=== PATIENT | female | born 1935 | race Caucasian/White ===

== ENCOUNTER 2021-02-14 17:06 | Observation (INO) | payer MEDICARE ==
[~2021-02-14] VITALS: Ht 165.1 cm; Wt 59.0 kg
[2021-02-14 22:37] LABS: CLARITY,URINE SL CLOUDY (CLEAR); COLOR,URINE YELLOW (YELLOW); KETONES,URINE NEGATIVE (NEGATIVE); LEUKOCYTE ESTERASE ,URINE TRACE (NEGATIVE); NITRITE,URINE POSITIVE (NEGATIVE); PROTEIN,URINE DIPSTICK NEGATIVE (NEGATIVE); URINE UROBILINOGEN 0.2 mg/dL (0.2 - 1)
[2021-02-14 22:40] LABS: BASOPHILS # (AUTO) 0.1 (0.0-0.1); BASOPHILS % 0.6 % (0.0-1.0); EOSINOPHILS # (AUTO) 0.1 (0.0-0.4); HEMATOCRIT 41.8 % (34.2-44.1); HEMOGLOBIN 13.6 g/dL (12.0-16.0); LYMPHOCYTES # (AUTO) 4.5 (1.0-3.2); MEAN CORPUSCULAR HEMOGLOBIN 30.2 pg (28-32); MEAN CORPUSCULAR HGB CONC 32.5 g/dL (31-35); MEAN CORPUSCULAR VOLUME 92.9 fL (81-99); MONOCYTES % 10.6 % (4.4-11.3); NEUTROPHILS % 41.5 % (38.7-80.0); PLATELET COUNT 211 x10e3/uL (140-360); RED CELL DISTRIBUTION WIDTH 12.5 % (11.7-14.4)
[2021-02-14 22:47] LABS: BACTERIA,URINE MANY /HPF; EPITHELIAL CELLS,URINE FEW /LPF; RBC,URINE 0-5 /HPF (0-5)
[2021-02-14 22:55] LABS: ALBUMIN 4.1 g/dL (3.5-5.0); ALBUMIN/GLOBULIN RATIO 1.6 (0.8-2.0); ANION GAP 16.8 mmol/L (8-16); CALCIUM 8.8 mg/dL (8.4-10.2); CREATININE, SERUM 1.1 mg/dL (0.57-1.11)
[2021-02-14 22:59] LABS: POTASSIUM 2.8 mmol/L (3.5-5.1)
[2021-02-14 23:02] LABS: CREATINE KINASE MB 1.5 ng/mL (0-5.0)
[2021-02-14] MEDS ORDERED: POTASSIUM CHLORIDE 20 MEQ TAB CR PO STA (23:06)
[2021-02-14] MEDS ORDERED: CEFTRIAXONE 1 GM in SODIUM CHLORIDE 0.9% 50ML 50 ML IV ONE (23:30)
[2021-02-15] MEDS ORDERED: POTASSIUM CHLORIDE 20 MEQ TAB CR PO STA (00:19)
[2021-02-15 06:14] LABS: BASOPHILS # (AUTO) 0.1 (0.0-0.1); BASOPHILS % 0.9 % (0.0-1.0); EOSINOPHILS # (AUTO) 0.1 (0.0-0.4); EOSINOPHILS % 1.1 % (0.0-6.0); HEMATOCRIT 37.7 % (34.2-44.1); HEMOGLOBIN 12.2 g/dL (12.0-16.0); LYMPHOCYTES % 37.8 % (18.0-39.1); MEAN CORPUSCULAR HEMOGLOBIN 30.3 pg (28-32); MEAN CORPUSCULAR HGB CONC 32.4 g/dL (31-35); MEAN CORPUSCULAR VOLUME 93.5 fL (81-99); MONOCYTES # (AUTO) 0.9 (0.2-0.8); MONOCYTES % 11.9 % (4.4-11.3); NEUTROPHILS # (AUTO) 3.8 (2.1-6.9); NEUTROPHILS % 48.2 % (38.7-80.0); PLATELET COUNT 178 x10e3/uL (140-360); RED BLOOD COUNT 4.03 x10e6/uL (3.6-5.1); RED CELL DISTRIBUTION WIDTH 12.4 % (11.7-14.4)
[2021-02-15 06:46] LABS: ALBUMIN 3.5 g/dL (3.5-5.0); ALBUMIN/GLOBULIN RATIO 1.5 (0.8-2.0); ANION GAP 14.4 mmol/L (8-16); CALCIUM 8.4 mg/dL (8.4-10.2); CREATININE, SERUM 0.94 mg/dL (0.57-1.11); POTASSIUM 3.4 mmol/L (3.5-5.1)
[2021-02-15] MEDS ORDERED: ONDANSETRON HCL INJ 2MG/ML 2ML 2 MG/ML VIAL IV PRN (07:45)
[2021-02-15] MEDS ORDERED: DOCUSATE SODIUM 100 MG CAP PO PRN (07:45)
[2021-02-15] MEDS ORDERED: ACETAMINOPHEN 325 MG TAB PO PRN (07:45)
[2021-02-15] MEDS: MULTIVITAMINS/MINERALS TAB PO SCH (07:54)
[2021-02-15] MEDS: SODIUM CHLORIDE 0.45% 1,000 ML IV SCH (08:05)
[2021-02-15] MEDS ORDERED: POTASSIUM (09:53)
[2021-02-15] MEDS ORDERED: PRAVASTATIN SOD20 MG PO (09:53)
[2021-02-15] MEDS ORDERED: ALBUTEROL (09:53)
[2021-02-15] MEDS ORDERED: METOPROLOL SUCC50 MG PO (09:53)
[2021-02-15] MEDS ORDERED: NIFEDIPINE ER30 M1 PO (09:53)
[2021-02-15] MEDS ORDERED: FUROSEMIDE40 MG PO (09:53)
[2021-02-15 10:24] VITALS: BP 139/80
[2021-02-15 10:30] VITALS: BP 139/80
[2021-02-15 11:39] VITALS: BP 131/89
[2021-02-15] MEDS ORDERED: POTASSIUM CHLO10 ME1 PO (11:39)
[2021-02-15 16:17] VITALS: BP 132/70
[2021-02-15] MEDS: METOPROLOL SUCCINATE 50 MG TAB XL PO SCH (17:49)
[2021-02-15 21:00] VITALS: BP 114/70
[2021-02-15] MEDS ORDERED: ZOLPIDEM TARTRATE 5 MG TAB PO PRN (21:00)
[2021-02-15] MEDS ORDERED: PRAVASTATIN 20 MG TAB PO SCH (21:00)
[2021-02-15 21:16] VITALS: BP 114/70
[2021-02-16] MEDS ORDERED: CEFTRIAXONE 1 GM in SODIUM CHLORIDE 0.9% 50ML 50 ML IV SCH (00:30)
[2021-02-16] MEDS: SODIUM CHLORIDE 0.45% 1,000 ML IV SCH (00:40)
[2021-02-16 01:39] VITALS: BP 112/74
[2021-02-16 06:23] VITALS: BP 102/77
[2021-02-16 07:39] VITALS: BP 122/75
[2021-02-16] MEDS ORDERED: NIFEDIPINE CR 30 MG TAB PO SCH (09:00)
[2021-02-16 09:10] LABS: BASOPHILS # (AUTO) 0.1 (0.0-0.1); BASOPHILS % 1.1 % (0.0-1.0); EOSINOPHILS # (AUTO) 0.1 (0.0-0.4); EOSINOPHILS % 1.6 % (0.0-6.0); HEMATOCRIT 38.8 % (34.2-44.1); HEMOGLOBIN 12.8 g/dL (12.0-16.0); LYMPHOCYTES # (AUTO) 2.5 (1.0-3.2); LYMPHOCYTES % 33.7 % (18.0-39.1); MEAN CORPUSCULAR VOLUME 93.9 fL (81-99); MONOCYTES # (AUTO) 0.7 (0.2-0.8); NEUTROPHILS # (AUTO) 3.9 (2.1-6.9); NEUTROPHILS % 53.5 % (38.7-80.0); PLATELET COUNT 182 x10e3/uL (140-360); RED BLOOD COUNT 4.13 x10e6/uL (3.6-5.1); RED CELL DISTRIBUTION WIDTH 12.5 % (11.7-14.4)
[2021-02-16 09:15] VITALS: BP 122/75
[2021-02-16] MEDS: MULTIVITAMINS/MINERALS TAB PO SCH (09:17)
[2021-02-16] MEDS: METOPROLOL SUCCINATE 50 MG TAB XL PO SCH (09:17)
[2021-02-16] MEDS ORDERED: KEFLEX125 MG/5 M PO (09:49)
[2021-02-16] MEDS ORDERED: Multivitamins/Minerals PO (09:49)
[2021-02-16 09:56] LABS: ANION GAP 12.4 mmol/L (8-16); CALCIUM 8.1 mg/dL (8.4-10.2); CREATININE, SERUM 0.9 mg/dL (0.57-1.11); POTASSIUM 3.4 mmol/L (3.5-5.1)
[2021-02-16] MEDS ORDERED: ONDANSETRON HCL 4 MG ORAL DISINTEGRATING TAB PO PRN (11:00)
[2021-02-16 11:14] VITALS: BP 136/73
[2021-02-16] MEDS ORDERED: POTASSIUM CHLORIDE 20 MEQ TAB CR PO ONE (11:50)
[2021-02-17] MEDS ORDERED: MACROBID 100 M100 MG PO (22:53)
== END 2021-02-16 12:51 | disposition home or self-care (01) ==
LOC: ER 19:16 → ERHOLD 23:32 → IMCU 02-15 10:20 → MED/SURG 02-15 18:04
PROVIDERS: ADMIT Internal Medicine; ATTEND Internal Medicine
DX: N39.0 Urinary tract infection, site not specified (principal); R41.82 Altered mental status, unspecified; I10 Essential (primary) hypertension; E78.5 Hyperlipidemia, unspecified; H54.8 Legal blindness, as defined in USA; N17.9 Acute kidney failure, unspecified; E87.6 Hypokalemia; R44.1 Visual hallucinations; R44.0 Auditory hallucinations; Z20.822 Contact with and (suspected) exposure to COVID-19
CPT/HCPCS: 36415 ×3; 70450; 71045; 80048; 80053 ×2; 81001; 82550; 82553; 82948; 84484; 85025 ×3; 87086; 87186; 97161; 97530; 99284; G0378 ×3; J0696; U0002

== ENCOUNTER 2021-02-17 21:08 | Emergency (ER) | payer MEDICARE ==
[~2021-02-17] VITALS: Ht 165.1 cm; Wt 59.0 kg
[~2021-02-17 21:08] MED LIST: ALBUTEROL; FUROSEMIDE40 MG PO; KEFLEX125 MG/5 M PO; METOPROLOL SUCC50 MG PO; Multivitamins/Minerals PO; NIFEDIPINE ER30 M1 PO; POTASSIUM; POTASSIUM CHLO10 ME1 PO; PRAVASTATIN SOD20 MG PO
[2021-02-17 21:29] LABS: BASOPHILS # (AUTO) 0.1 (0.0-0.1); BASOPHILS % 0.8 % (0.0-1.0); EOSINOPHILS # (AUTO) 0.1 (0.0-0.4); EOSINOPHILS % 0.8 % (0.0-6.0); HEMATOCRIT 37.3 % (34.2-44.1); HEMOGLOBIN 12.1 g/dL (12.0-16.0); LYMPHOCYTES # (AUTO) 2.3 (1.0-3.2); LYMPHOCYTES % 20.2 % (18.0-39.1); MEAN CORPUSCULAR HEMOGLOBIN 30.6 pg (28-32); MEAN CORPUSCULAR HGB CONC 32.4 g/dL (31-35); MEAN CORPUSCULAR VOLUME 94.4 fL (81-99); MONOCYTES % 8.6 % (4.4-11.3); NEUTROPHILS # (AUTO) 7.7 (2.1-6.9); NEUTROPHILS % 69.2 % (38.7-80.0); PLATELET COUNT 176 x10e3/uL (140-360); RED BLOOD COUNT 3.95 x10e6/uL (3.6-5.1); RED CELL DISTRIBUTION WIDTH 12.8 % (11.7-14.4)
[2021-02-17] MEDS ORDERED: METHYLPREDNISOLONE SOD SUCC 125 MG/2ML VIAL IV ONE (21:30)
[2021-02-17] MEDS ORDERED: ALBUTEROL/IPRATROPIUM 3 ML NEB NEB ONE (21:30)
[2021-02-17] MEDS ORDERED: ASPIRIN 81 MG CHEW TAB PO ONE (21:30)
[2021-02-17 21:54] LABS: ALANINE AMINOTRANSFERASE 12 IU/L (0-55); ALBUMIN 3.6 g/dL (3.5-5.0); ALBUMIN/GLOBULIN RATIO 1.5 (0.8-2.0); ALKALINE PHOSPHATASE 69 IU/L (40-150); ANION GAP 11.1 mmol/L (8-16); BLOOD UREA NITROGEN 14 mg/dL (7-26); BUN/CREATININE RATIO 15 (6-25); CARBON DIOXIDE 26 mmol/L (22-29); CHLORIDE 110 mmol/L (98-107); CREATINE KINASE 90 IU/L (29-168); CREATININE, SERUM 0.93 mg/dL (0.57-1.11); EST GLOMERULAR FILTRATION RATE 58 ML/MIN (60-); GLUCOSE 111 mg/dL (74-118); POTASSIUM 4.1 mmol/L (3.5-5.1); SODIUM 143 mmol/L (136-145)
[2021-02-17] MEDS ORDERED: MACROBID 100 M100 MG PO (22:53)
[2021-02-17 23:59] VITALS: BP 118/67
== END 2021-02-17 23:30 | disposition home or self-care (01) ==
LOC: ER 21:34
DX: R06.02 Shortness of breath (principal); T36.1X5A Adverse effect of cephalosporins and other beta-lactam antibiotics, initial encounter; I10 Essential (primary) hypertension; E78.5 Hyperlipidemia, unspecified; H54.8 Legal blindness, as defined in USA; R94.31 Abnormal electrocardiogram [ECG] [EKG]; F17.210 Nicotine dependence, cigarettes, uncomplicated
CPT/HCPCS: 36415; 80053; 82550; 82553; 84484; 85025; 93005; 94640; 99284; J2930